=== PATIENT | female | born 1950 ===

== ENCOUNTER 2017-09-10 19:52 | Emergency (ER) | payer MEDICARE, OTHER ==
--- NOTE | 2017-09-10 20:51 | C.PDOC ---
History Of Present Illness 67 year old female with Hx of HTN presents to the ED for evaluation of high fever, headache, cough that started today. Patient states she went to her PMD Dr. Rich on Monday and was diagnosed with pneumonia and was started on Levaquin which she has been taking for the past 2 days, patient is also taking Ramipril in the morning and Norvasc in the night for her HTN. Patient took her BP medications in the morning but was not feeling well this afternoon. When she measured her BP it was 180/90 which is high for her, patient then took her Norvasc at 18:30 with no improvement. Patient is also c/o high fever which was measured at 101 this afternoon. Patient denies SOB, nausea, vomit, diarrhea. Time Seen by Provider: 09/10/17 20:34 Chief Complaint (Nursing): Fever History Per: Patient History/Exam Limitations: no limitations Onset/Duration Of Symptoms: Hrs Current Symptoms Are (Timing): Still Present Sick Contacts (Context): None Associated Symptoms: Fever, Cough. denies: Vomiting, Diarrhea Recent travel outside of the [place]: No Additional History Per: Patient Past Medical History Reviewed: Historical Data, Nursing Documentation, Vital Signs Vital Signs: Last Vital Signs Temp 98.4 F 09/10/17 20:12 Pulse 122 H 09/10/17 20:12 Resp 16 09/10/17 20:12 BP 157/84 H 09/10/17 20:12 Pulse Ox 96 09/10/17 21:28 - Medical History PMH: HTN, Hypercholesterolemia Surgical History: No Surg Hx Family History: States: Unknown Family Hx - Social History Hx Alcohol Use: No Hx Substance Use: No - Immunization History Hx Tetanus Toxoid Vaccination: No Hx Influenza Vaccination: No Hx Pneumococcal Vaccination: No Review Of Systems Constitutional: Positive for: Fever. Negative for: Chills Cardiovascular: Negative for: Chest Pain, Palpitations Respiratory: Positive for: Cough. Negative for: Shortness of Breath Gastrointestinal: Negative for: Nausea, Vomiting, Abdominal Pain, Diarrhea Skin: Negative for: Rash Neurological: Negative for: Weakness, Numbness, Headache Physical Exam - Physical Exam Appears: Non-toxic, No Acute Distress Skin: Normal Color, Warm, Dry Head: Atraumatic, Normacephalic Nose: No Discharge Oral Mucosa: Moist Neck: Normal ROM, Supple Chest: Symmetrical Cardiovascular: Rhythm Regular (tachycradic), No Murmur Respiratory: No Rales, Rhonchi (coarse B/L at the base), No Wheezing Gastrointestinal/Abdominal: Soft, No Tenderness, No Distention, No Guarding, No Rebound Extremity: Normal ROM, No Pedal Edema, No Calf Tenderness, No Swelling Neurological/Psych: Oriented x3, Normal Speech, Normal Cognition ED Course And Treatment - Laboratory Results Result Diagrams: 09/10/17 20:55 09/10/17 20:55 Lab Interpretation: No Acute Changes O2 Sat by Pulse Oximetry: 96 (On RA) Pulse Ox Interpretation: Normal - Radiology CXR: Interpreted by Me CXR Interpretation: Yes: Infiltrates (mild bibasilar linear densities) Reevaluation Time: 21:26 Reassessment Condition: Improved (BP 129/78) - Physician Consult Information Time Consulting Physician Contacted: 21:27 Physician Contacted: Liz Rich Outcome Of Conversation: No answer after several calls to service. Medical Decision Making Medical Decision Making: Plan: * Blood work ordered * CXR ordered Disposition Counseled Patient/Family Regarding: Studies Performed, Diagnosis, Need For Followup - Disposition Referrals: Liz Rich MD [Staff Provider] - Disposition: HOME/ ROUTINE Disposition Time: 22:42 Condition: STABLE Instructions: Community Acquired Pneumonia (ED) Forms: [facility] (Col[place]ian) - Clinical Impression Clinical Impression: Pneumonia - Scribe Statement The provider has reviewed the documentation as recorded by the Scribe Ajith Lomax All medical record entries made by the Scribe were at my direction and personally dictated by me. I have reviewed the chart and agree that the record accurately reflects my personal performance of the history, physical exam, medical decision making, and the department course for this patient. I have also personally directed, reviewed, and agree with the discharge instructions and disposition.
[2017-09-10 21:04] LABS: BASO % 0.9 % (0.0-2.0); EOS % 0.3 % (0.0-4.0); HEMATOCRIT 40.7 % (34.0-47.0); LYMPH # 1.6 K/uL (1.0-4.3); LYMPH % 31.8 % (20.0-40.0); MEAN CELL VOLUME 91.1 fL (81.0-99.0); MEAN CORPUSCULAR HEMOGLOBIN 30.6 pg (27.0-31.0); MEAN CORPUSCULAR HGB CONC 33.6 g/dL (33.0-37.0); MEAN PLATELET VOLUME 8.1 fL (7.2-11.7); MONO # 0.6 K/uL (0.0-0.8); MONO % 12.4 % (0.0-10.0); RED CELL DISTRIBUTION WIDTH 12.9 % (11.5-14.5); WHITE BLOOD COUNT 5.2 K/uL (4.8-10.8)
[2017-09-10 21:12] LABS: ALB/GLOB RATIO 1.3 (1.0-2.1); ALKALINE PHOSPHATASE 59 U/L (38-126); ALT/SGPT 41 U/L (9-52); AST/SGOT 30 U/L (14-36); BILIRUBIN,TOTAL 0.4 mg/dL (0.2-1.3); BLOOD UREA NITROGEN 15 mg/dL (7-17); CALCIUM 8.5 mg/dl (8.6-10.4); CARBON DIOXIDE 27 mmol/L (22-30); CHLORIDE 101 mmol/L (98-107); GFR AFRICAN-AMERICAN > 60; GLUCOSE,RANDOM 112 mg/dL (65-105); POTASSIUM 4.1 mmol/L (3.6-5.2); SODIUM 137 mmol/L (132-148); TOTAL PROTEIN 7.3 g/dL (6.3-8.3)
[2017-09-10 22:54] VITALS: BP 150/83; PULSE 103; RESP 18; TEMP 98.7; O2SAT 97
--- NOTE | 2017-09-11 09:07 | RAD ---
Chest x-ray single frontal view History: Shortness of breath. Comparison: 09/23/2015 Findings: Biapical pleural thickening with upper lobe granulomatous changes. Hyperinflation suggestive for COPD and or emphysematous changes. Bibasilar breast and nipple shadows. Nodular density seen at the lateral aspect of the right midlung zone may represent confluence of shadows with ribs and vessels. Mild patchy increased markings at the right lung base. Clinical correlation. Calcification at the aortic knob. Tortuous aorta. Degenerative changes in the spine and shoulders. Impression: Biapical pleural thickening with upper lobe granulomatous changes. Hyperinflation suggestive for COPD and or emphysematous changes. Bibasilar breast and nipple shadows. Nodular density seen at the lateral aspect of the right midlung zone may represent confluence of shadows with ribs and vessels. Mild patchy increased markings at the right lung base. Clinical correlation. Calcification at the aortic knob. Tortuous aorta.
== END 2017-09-10 22:54 | disposition home or self-care (01) ==
LOC: C.ER 19:52
DX: J18.9 Pneumonia, unspecified organism (principal)